=== PATIENT | male | born 1980 | race Caucasian/White ===

== ENCOUNTER 2017-07-08 18:35 | Emergency (ER) | payer BC ==
[~2017-07-08] VITALS: Ht 180.3 cm; Wt 88.9 kg
[2017-07-08 18:36] VITALS: BP 152/90
== END 2017-07-08 21:49 | disposition home or self-care (01) ==
LOC: ED 18:35
DX: S06.0X0A Concussion without loss of consciousness, initial encounter (principal); V49.9XXA Car occupant (driver) (passenger) injured in unspecified traffic accident, initial encounter; Y93.19 Activity, other involving water and watercraft; Y92.488 Other paved roadways as the place of occurrence of the external cause; Y99.8 Other external cause status